=== PATIENT | female | born 1950 | race Caucasian/White ===

== ENCOUNTER → 2020-05-30 11:31 | Outpatient (BNVA) | payer MEDICARE, SELFPAY | PROVIDERS: Referring Provider Family Medicine; Visit Provider Specialist | DX: G89.29 Other chronic pain (principal); M25.551 Pain in right hip | CPT/HCPCS: 73502 ==

== ENCOUNTER → 2020-11-28 10:11 | Outpatient (BNVA) | payer MEDICARE, SELFPAY | PROVIDERS: Visit Provider Specialist | DX: M16.11 Unilateral primary osteoarthritis, right hip (principal) | CPT/HCPCS: 73502 ==

== ENCOUNTER → 2020-12-13 12:05 | Day surgery (SDC) | payer MEDICARE, SELFPAY | PROVIDERS: PCP Family Medicine; Visit Provider Specialist | DX: M16.11 Unilateral primary osteoarthritis, right hip (principal); Z01.818 Encounter for other preprocedural examination | CPT/HCPCS: 93005 ==

== ENCOUNTER → 2020-12-20 09:06 | Outpatient (BNVA) | payer MEDICARE, SELFPAY | PROVIDERS: PCP Family Medicine; Visit Provider Specialist | DX: Z20.822 Contact with and (suspected) exposure to COVID-19 (principal); M16.11 Unilateral primary osteoarthritis, right hip; Z11.52 Encounter for screening for COVID-19 | CPT/HCPCS: 87635 ==

== ENCOUNTER 2020-12-24 10:20 | Observation (INO) | payer MEDICARE, SELFPAY ==
[2020-12-13 11:27] LABS: Add Urine Microscopic? NO
[2020-12-13 11:38] VITALS: BMI 40.0
[2020-12-13 11:48] LABS: Bilirubin Urine Neg (Negative); Blood Urine Neg (Negative); Glucose Urine UA Norm (Normal); Ketones Urine Negative (Negative); Leukocyte Esterase Urine Negative (Negative); Nitrate Urine Negative (Negative); Protein Urine Neg (Negative); Specific Gravity, Urine 1.025 (1.005-1.030); Urine Appearance Clear (CLEAR); Urine Color Yellow (Yellow); Urobilinogen Urine 1 mg/dL (Negative)
--- NOTE | 2020-12-13 12:05 | ECG_ITS ---
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 Measurements Intervals [place] Rate: 61 P: 44 OR: 159 QRS: -17 QRSD: 97 T: 32 QT: 442 QTc: 445 Interpretive Statements SINUS RHYTHM LOW QRS VOLTAGE IN PRECORDIAL LEADS [QRS DEFLECTION < 1.0 mV IN CHEST LEADS] POSSIBLE ANTERIOR MYOCARDIAL INFARCTION [30 ms Q WAVE IN V3/V4, OR R < 0.2 mV IN V4], PROBABLY OLD No previous ECG available for comparison Electronically Signed On 12-13-2020 16:14:38 PATIENT OFFICE REP by Duane Araujo M.D. [email or web address]
--- NOTE | 2020-12-13 12:14 | ANES.PREANE2 ---
Pre-Anesthetic Assessment Pre-Anesthetic Assessment: Height/Weight: Height 1.6 m Weight 102.512 kg Preop Diagnosis: Severe right hip DJD Proposed Procedure: Operation Date: 12/24/20 07:00 Proposed Procedures p Total Hip Arthroplasty 23158 M16.9(Right) - Kenna Aponte MD Familial anesthetic complications: None Social: Social History: No alcohol and No tobacco Exam: Pre-Anes Outpt Exam: alert, oriented x 3, clear to auscultation bilaterally and regular rate & rhythm Airway: Cervical ROM: WNL MP: 2 Dentition: Partials and Other (2 front teeth loose d/t damage from an infant's head) Additional comments: very poor dentition, discolored Pulmonary: Pulmonary: COPD (moderate -uses inhaler 2x daily, hasnt' needed rescue inhaler for quite awhile) and Sleep apnea CV/HEM: CV/HEM: HTN Metabolic: Metabolic: Morbid obesity and Thyroid Anesthetic Plan: ASA status: 3 Anesthesia: General and Regional (specify below) Other: Patient ok with spinal Risk of > 500 ml blood loss (7ml/kg in children): No PFSH Anesthesia PFSH: Medical History (Updated 12/13/20 @ 11:30 by Domonique Parra) COPD (chronic obstructive pulmonary disease) Hypertension Social History (Updated 12/13/20 @ 11:32 by Domonique Parra) Smoking and tobacco status: former smoker Alcohol intake: former Desire information about alcohol rehabilitation?: No Counseling given: No Substance/Drug Use: never Data Anesthesia Other Labs: Laboratory Results - last 48 hr 12/13/20 11:24 Urine Color Yellow Urine Appearance Clear Urine pH 5.0 Ur Specific [place] 1.025 Urine Protein Neg Urine Glucose (UA) Norm Urine Ketones Negative Urine Blood Neg Urine Nitrate Negative Urine Bilirubin Neg Urine Urobilinogen 1 H Ur Leukocyte Esterase Negative Cardiac Studies: No Data to Display
[2020-12-13 12:42] LABS: Basophils % 0.7 %; Eosinophils # 0.1 10^3/uL (0.0-0.8); Eosinophils % 2.6 %; Hematocrit 42.9 % (37.0-47.0); Hemoglobin 14.5 g/dL (11.5-15.3); Lymphocytes # 1.3 10^3/uL (0.8-4.8); Lymphocytes % 24.5 %; Mean Corpuscular HGB Conc 33.8 g/dL (30.0-36.0); Mean Corpuscular Hemoglobin 30.7 pg (28.0-34.0); Mean Corpuscular Volume 90.9 fL (81-99); Monocytes # 0.5 10^3/uL (0.2-0.9); Monocytes % 8.2 %; Neutrophils # 3.47 10^3/uL (1.8-7.7); Neutrophils % 63.6 %; Nucleated Red Blood Cells % 0 %; Platelet Count 152 10^3/cmm (130-400); Red Blood Count 4.72 10^6/uL (4.1-5.3); Red Cell Distribution Width 13.4 % (12.1-15.1); White Blood Count 5.5 10^3/uL (4.0-10.0)
[2020-12-13 13:02] LABS: Alanine Aminotransferase 22 U/L (0-33); Alkaline Phosphatase 69 IU/L (35-105); Anion Gap 11.1 (5-19); Aspartate Amino Transferase 24 U/L (0-32); Blood Urea Nitrogen 18 mg/dL (8-23); Calcium 9.1 mg/dL (8.5-10.5); Carbon Dioxide 29 mmol/L (22-29); Chloride 100 mmol/L (98-107); Globulin 3.7 g/dL (1.3-4.6); Glomerular Filtration Rate 70.9 mL/min (90-130); Glucose 105 mg/dL (65-115); Osmolality Calculated 286 mOsm/kg (285-295); Potassium 3.1 mmol/L (3.5-5.1); Sodium 137 mmol/L (136-145); Total Bilirubin 0.5 mg/dL (0.15-1.2); Total Protein 7.7 g/dL (6.6-8.7)
[2020-12-24] VITALS (25 sets, daily range): BP systolic 110–142; BP diastolic 62–85; PULSE 61–78; RESP 13–20; TEMP 36–37.3; O2SAT 95–100
[2020-12-24] MEDS: CELEcoxib 200 mg Capsule 400 MG PO (06:30)
--- NOTE | 2020-12-24 06:40 | P.HPUD_ITS ---
Surgery/Procedure H&P Update DATE OF PROCEDURE: December 24, 2020 DATE H&P PERFORMED: 11/28/20 H&P UPDATE INFORMATION: I have reviewed H&P completed within last 30 days, I have examined patient prior to procedure, No changes to prior documentation and H&P is in [facility] [place] on date indicated PREOP DIAGNOSIS: Severe right hip DJD PLANNED PROCEDURE: Operation Date: 12/24/20 07:00 Proposed Procedures p Total Hip Arthroplasty 37853 M16.9(Right) - Kenna Aponte MD Related Problem List Diagnoses (1) Obesity, Class II, BMI 35-39.9: (2) Primary osteoarthritis of right hip:
[2020-12-24] MEDS: sodium chloride 0.9% 1,000 ML 30 ML IV (06:49)
--- NOTE | 2020-12-24 06:51 | P.ANESUD_ITS ---
Pre-Anesthetic Update Pre-Anesthetic Assessment: Date of Surgery/Procedure: 12/24/20 Preop Beatrice gnosis: Severe right hip DJD Proposed Procedure: Operation Date: 12/24/20 07:00 Proposed Procedures p Total Hip Arthroplasty 62075 M16.9(Right) - Kenna Aponte MD Any changes to Pre-Anesthetic Assessment?: No Vitals: Pulse Rate 62 12/24/20 06:21 Respiratory Rate 18 12/24/20 06:21 Blood Pressure 142/77 12/24/20 06:21 Blood Pressure Khloe n 98 12/24/20 06:21 Pulse Oximetry 97 12/24/20 06:21 Exam: Pre-Anes Outpt Exam: alert, oriented x 3, clear to auscultation bilaterally and regular rate & rhythm Cardiac Studies: No Data to Display
--- NOTE | 2020-12-24 08:50 | SUR.OPER ---
0805- called with update
[2020-12-24] MEDS: vancomycin 1,000 MG SDV 1000 MG IRRIGATION (09:14)
[2020-12-24] MEDS: vancomycin 1,000 MG SDV 1000 MG XX (09:15)
--- NOTE | 2020-12-24 09:27 | SUR.OPER ---
0915-CALLED WITH UPDATE
[2020-12-24] MEDS: fentaNYL 50 mcg/mL INJ 2mL IVP ×2 (10:37→10:43)
[2020-12-24] MEDS: morphine 4 mg/mL SDV 1 mL 2 MG IVP (10:47)
--- NOTE | 2020-12-24 10:50 | XRR_ITS ---
PROCEDURE INFORMATION: Exam: XR Pelvis Exam date and time: 12/24/2020 11:01 AM Age: 70 years old Clinical indication: Device placement; Prior surgery; Surgery date: Post-operative (0-2 days); Surgery type: Postop right total hip TECHNIQUE: Imaging protocol: XR pelvis. Views: 1 or 2 view. COMPARISON: CR XR hip RT 2-3V wo/w pel* [id number] 11/28/2020 10:17 AM FINDINGS: Bones/joints: Anatomic alignment of right hip arthroplasty. Degenerative change. Soft tissues: Panniculus and skin folds. XR/XR pelvis 1-2V* [id number] IMPRESSION: Anatomic alignment of right hip arthroplasty.
--- NOTE | 2020-12-24 11:03 | P.OP_ITS ---
Operative Report Date of procedure: December 24, 2020 Pre-op Diagnosis: Severe right hip DJD Post-op diagnosis: same Post-op Findings: Severe degenerative osteoarthritis right hip with circumferential osteophytes on the femoral neck and acetabulum. Procedure Done: Right total hip arthroplasty Implants: [place] Accolade II total hip system: The size 52 mm solid back acetabular shell with an E alpha code and an MDM liner size 42 mm inner diameter by E alpha code. An Accolade II size 4 x 127 degree neck angle hip stem, femoral head size 28 mm outer diameter and +0 mm offset inside of an MDM insert size inner diameter 28 mm to match the 42E Specimens removed/disposition: Femoral head and synovium sent to pathology Pathology: other (Femoral head and synovium) Surgeon: Kenna Aponte Curtain Fitter: [facility] operating room technicians Anesthesia: General (Intubated, ASA 3) Estimated blood loss (mL): 750 IV fluids (mL): 1,500 Urine output (mL): 400 Complications: None Findings: Severe degenerative osteoarthritis of the right hip with large osteophytes, restricted range of motion, and obesity causing difficulty with surgical exposure and procedure. Following the surgical procedure, the hip was stable at 90 degrees of flexion with 70 degrees of internal rotation and 20 degrees of adduction. It was also stable to external rotation and toe hang. There was no impingement noted. Condition: stable Disposition: PACU (Then to floor for postoperative observation, pain management, and initiation of physical therapy.) Brief History: This 70-year-old woman presented with complaints of severe right hip pain with significant reduction in range of motion. She has had significant limitations in her activities of daily living. Her surgical procedure was complicated by her BMI at 40. Previously, in the office, she was slightly less than 40. Risks and complications of surgery were discussed with the patient. She understood and wished to proceed. Consents were signed. Questions were answered. Procedure: Patient was brought to the operating theater. She was transferred to the operating room table and subsequently administered a general anesthetic intubated, ASA 3. Following administration of adequate anesthesia, the patient was placed in full lateral position and held in position with a pegboard. The patient's right lower extremity was then prepped and draped in usual fashion utilizing DuraPrep. It was draped free. Following prepping and draping a surgical pause was performed. At the time of surgical pause, we identified the site and side of surgery. We also identified the patient and preoperative surgical markings. Confirmation was made of equipment availability. Additionally, the patient's preoperative IV antibiotic, vancomycin 2 g and TXA 1 g preoperatively was confirmed as being given in a timely fashion and being the appropriate. Following the surgical pause, an incision was made centering over the patient's greater trochanter continuing proximally and distally as necessary to allow access to the hip joint. Dissection continued through skin and soft tissues using a scalpel, and hemostasis was obtained using electrocautery. The tensor fascia priya was identified and incised longitudinally. Sciatic nerve was identified and protected throughout the surgical procedure. A Charnley U retractor was placed after the tensor fascia priya had been incised longitudinally, and the sciatic nerve had been identified. The hip had significant limitation in range of motion, and most particularly, and internal rotation. Exposure was quite difficult secondary to the patient's morbid obesity. She had lost weight preoperatively to a BMI of less than 40, and on the day of presentation for surgery was at 40. Retractors were placed, and the piriformis muscle was identified and tagged. Piriformis muscle along with the remaining short external rotators were then incised from the posterior aspect of the hip joint. These were retracted posteriorly. The capsule was entered in a T-type fashion with the edges being tagged. Upon entry through the capsule, there were large osteophytes, particularly posteriorly on the acetabulum. The femoral head was noted to be deformed. Appropriate osteotomy was performed of the femoral neck following hip dislocation. We then evaluated the acetabulum. There was significant synovium and thickening within the acetabulum. There was actually a large mass of synovium which was sent to pathology. Additionally, the femoral head was sent to pathology. The femur was retracted anteriorly. Soft tissues were retracted, osteophytes were excised, and the labrum was removed. We then began reaming. Reaming was accomplished sequentially. We reamed to a size 51 to allow for a size 52 acetabular shell. The acetabulum was impacted into position. The dome hole was filled with the appropriate metal plug. Also, we confirmed that the acetabular insert was completely seated prior to addressing the femur. After the acetabulum was in appropriate position, we placed the MDM liner without difficulty. The cup was noted to seat nicely and had good fixation upon impact. Attention was directed to the proximal femur. The proximal femur was lifted out of the wound. A canal finder was passed after the box chisel. The reamer was used to lateralize. We then began broaching. We broached sequentially, and placed a size 4 broach in position for trial reduction. A trial reduction was accomplished with a -4 mm femoral head inside the appropriate MDM insert. We initially attempted a +0 mm femoral head, but we were unable to reduce the hip. After we had reduced the hip with a -4 mm femoral head, we were able to change the head again to a +0 mm and reduction was able to be accomplished, and this gave excellent stability. With this in place, we had the above stabilities, and at that time, we felt that we had acceptable leg lengths. It had been determined preoperatively. Therefore, the +0 mm offset femoral head was chosen. Trial components were removed after the hip was dislocated. The size 4 Accolade II 127 degree neck angle hip stem was impacted into position without difficulty and onto this was placed a +0 mm offset femoral head with the appropriate MDM liner. The hip was then reduced without difficulty. With this construct, we had the above-noted stability. The stem was noted to seat nicely prior to placement of the femoral head. The wound was then copiously irrigated with 20 mL of Betadine and 500 mL of normal saline mixed together. Subsequently, we suctioned this out and irrigated the wound copiously with lactated Ringer's. Following reduction of the prosthesis once again, we confirmed the stability of the hip. Leg lengths were also felt to be satisfactory. Being satisfied with the prosthesis, attention was directed to closure. Closure was accomplished with 0 Vicryl in the capsular tissues. Piriformis was reattached with 0 Vicryl as well. Tensor fascia priya was closed with 0 Vicryl in an interrupted fashion. The subcutaneous tissues were closed with a combination of 0 Vicryl and 2-0 Monocryl. Vancomycin powder and a Gelfoam thrombin mixture was placed into the wound as well. The skin was closed with a running 3-0 Monocryl followed by Exofin and Steri-Strips. This was covered with Telfa and Tegaderm. The patient was placed in an abduction pillow. She was returned the Recovery Room in a satisfactory condition and will be discharged to the floor for postoperative rehabilitation and pain management. There were no complications. Associated Problem List Diagnoses (1) Primary osteoarthritis of right hip: (2) Obesity, Class II, BMI 35-39.9:
[2020-12-24] MEDS: TRAMadol 50 mg Tablet PO (12:35)
[2020-12-24] MEDS: CELEcoxib 200 mg Capsule PO ×2 (14:40→22:39)
[2020-12-24] MEDS: chlorhexidine gluconate 0.12% Btl 473 mL 30 ML MUCOUS MEM ×3 (14:40→22:39)
[2020-12-24] MEDS: oxyCODONE 5 mg IR Tab/Cap PO ×2 (15:35→19:56)
[2020-12-24] MEDS: mupirocin oint 22 gm 1 APPLIC NASAL (17:10)
[2020-12-24] MEDS: sennosides-docusate Tablet 2 TAB PO (17:10)
[2020-12-24] MEDS: calcium carbonate 500 mg Chew Tablet 1000 MG PO (17:10)
[2020-12-24] MEDS: iron polysaccharide complex 150 mg Capsule PO (17:10)
--- NOTE | 2020-12-24 21:30 | ANE.PACU2 ---
Inpatient post-anesthesia follow up: Airway intact: Yes Vital signs: Temperature 98.7 F Pulse Rate 69 Respiratory Rate 18 Blood Pressure 120/76 Pulse Oximetry 96 Oxygen Delivery Me thod Room Air Oxygen Flow Rate 8 Fraction of Inspir ed Oxygen Hydration adequate: Yes Nausea and vomiting: No Pain level: 4 Mental status: Baseline
[2020-12-25] VITALS (8 sets, daily range): BP systolic 108–118; BP diastolic 65–71; PULSE 60–75; RESP 18; TEMP 36.8–37.2; O2SAT 95–98
[2020-12-25 02:15] LABS: Basophils % 0.4 %; Eosinophils # 0.1 10^3/uL (0.0-0.8); Eosinophils % 1.4 %; Hematocrit 35.3 % (37.0-47.0); Hemoglobin 11.7 g/dL (11.5-15.3); Lymphocytes # 1.7 10^3/uL (0.8-4.8); Lymphocytes % 18.2 %; Mean Corpuscular HGB Conc 33.1 g/dL (30.0-36.0); Mean Corpuscular Volume 93.4 fL (81-99); Monocytes % 10.6 %; Neutrophils # 6.42 10^3/uL (1.8-7.7); Nucleated Red Blood Cells % 0 %; Platelet Count 147 10^3/cmm (130-400); Red Blood Count 3.78 10^6/uL (4.1-5.3); Red Cell Distribution Width 13.9 % (12.1-15.1); White Blood Count 9.3 10^3/uL (4.0-10.0)
--- NOTE | 2020-12-25 02:33 | PC.NURSE ---
Pt ambulated from bed to chair this morning as she was unable to sleep and restless. Pt ambulated approx 15 ft to chair and did very well with little assistance.
[2020-12-25 02:34] LABS: Anion Gap 10.3 (5-19); Blood Urea Nitrogen 12 mg/dL (8-23); Calcium 8.4 mg/dL (8.5-10.5); Carbon Dioxide 30 mmol/L (22-29); Chloride 99 mmol/L (98-107); Glomerular Filtration Rate 70.9 mL/min (90-130); Glucose 113 mg/dL (65-115); Osmolality Calculated 283 mOsm/kg (285-295); Potassium 3.3 mmol/L (3.5-5.1); Sodium 136 mmol/L (136-145)
[2020-12-25] MEDS: oxyCODONE 5 mg IR Tab/Cap PO ×2 (04:15→12:19)
[2020-12-25] MEDS: vancomycin 1,000 MG in sodium chloride 0.9% 250 ML 250 MG IV (06:47)
[2020-12-25] MEDS: iron polysaccharide complex 150 mg Capsule PO (08:25)
[2020-12-25] MEDS: multivitamin therapeutic Tablet 1 TAB PO (08:53)
[2020-12-25] MEDS: calcium carbonate 500 mg Chew Tablet 1000 MG PO (08:53)
[2020-12-25] MEDS: hydroCHLOROthiazide 25 mg Tablet PO (08:54)
[2020-12-25] MEDS: sennosides-docusate Tablet 2 TAB PO (08:54)
[2020-12-25] MEDS: cholecalciferol (vitamin D3) 1,000 unit Tablet 1000 UNIT PO (08:54)
[2020-12-25] MEDS: levothyroxine 125 mcg Tablet PO (08:55)
[2020-12-25] MEDS: aspirin 325 mg EC Tablet PO (08:55)
[2020-12-25] MEDS: citalopram 20 mg Tablet 40 MG PO (08:55)
[2020-12-25] MEDS: chlorhexidine gluconate 0.12% Btl 473 mL 30 ML MUCOUS MEM ×2 (08:59→12:21)
[2020-12-25] MEDS: mupirocin oint 22 gm 1 APPLIC NASAL (10:58)
[2020-12-25] MEDS: CELEcoxib 200 mg Capsule PO (10:58)
[2020-12-25] MEDS: acetaminophen 500 mg Tablet 1000 MG PO (10:58)
--- NOTE | 2020-12-25 14:26 | PM.DCS ---
Discharge Providers Date of Admission: 12/24/20 10:20 Date of Discharge: December 25, 2020 Attending Provider at Admission: Kenna Aponte MD Attending Provider at Discharge: Kenna Aponte MD Primary Care Provider: Rell Sarah MD Diagnoses at Discharge Discharge Diagnosis (1) Primary osteoarthritis of right hip: Status: Acute (2) Obesity, Class II, BMI 35-39.9: Status: Acute (3) History of total left hip arthroplasty: Status: Acute Permanent problem details: Right total hip arthroplasty with the following implants: [place] Accolade II total hip system: The size 52 mm solid back acetabular shell with an E alpha code and an MDM liner size 42 mm inner diameter by E alpha code. An Accolade II size 4 x 127 degree neck angle hip stem, femoral head size 28 mm outer diameter and +0 mm offset inside of an MDM insert size inner diameter 28 mm to match the 42E Reason for Visit Reason for Visit: osteoarthritis right hip Hospital Course Hospital Course This 70-year-old woman was brought into the hospital on December 24, 2020 for right total hip arthroplasty. The patient underwent same-day surgery. Postoperatively, she was admitted to the hospital in observation status to work on pain management and postoperative monitoring. She was also to work with physical therapy. On the first postoperative day, the patient was seen in her room. Her wound was benign. Her clear Tegaderm dressing with Telfa was left in place. She was doing well and was ambulating independently. Therapy thought that she was doing very well as well. She was neurologically intact. There is no evidence of infection. Labs were stable. The patient wished to be discharged home with home health, and I was in agreement with this. Therefore we will plan for that postoperative course. Physical Exam Const: COMMON NORMALS: no acute distress, average body habitus, patient oriented x3 and alert GENERAL APPEARANCE: cooperative and comfortable ORIENTATION/CONSCIOUSNESS: Yes awake HENMT: COMMON NORMALS: normocephalic and atraumatic HEAD & SCALP: normocephalic and atraumatic Eye: GENERAL EYE: appearance normal, both eyes and all related structures Chest: COMMONS NORMALS: normal inspection of the chest Resp: COMMON NORMALS: normal respiratory effort EFFORT & INSPECTION: Yes able to speak in complete sentences and Yes symmetric chest movement Extremity: RIGHT LOWER EXTREMITY: Yes hip joint (Incision is benign with minimal thigh swelling) Right hip: Yes inspection (No erythema or evidence of infection), Yes palpation (Minimal to no discomfort), Yes ROM (Not evaluated) and Yes neurovascular exam (Intact distal with no evidence of DVT) Neuro: COMMON NORMALS: patient oriented x3 SENSORIUM/ORIENTATION: Yes alert Psych: COMMON NORMALS: mental status grossly normal APPEARANCE: Yes grossly normal ATTITUDE: Yes calm and Yes engaged ATTENTION/CONCENTRATION: Yes attention grossly intact Skin: COMMON NORMALS: no rashes or lesions noted GENERAL SKIN EXAM: no rashes or lesions noted Urinary Catheter Management^: Canas: Cath Placed During This Visit: yes, but has since been removed by the nurse Reason for Continuing Indwelling Catheter: Perioperative Use in Selected Surgeries Urinary Catheter Date of Insertion: 12/24/20 Urinary Catheter Time of Insertion: 07:20 Date Urinary Catheter Removed: 12/25/20 Time Urinary Catheter Discontinued: 06:15 Discharge Data Data Completed and Pending: Completed Studies During Hospitalization Category Date Time Status XR pelvis 1-2V* 7 2170 Urgent Exams 12/24/20 10:50 Completed Pending at discharge Category Date Time Status Complete Blood Co unt w/Auto AM LABS Lab 12/26/20 04:00 Ordered Complete Blood Co unt w/Auto AM LABS Lab 12/27/20 04:00 Ordered Pathology: Surgic al [PTH] Routine Pth 12/24/20 10:36 Received Labs from last 24 hours 12/25/20 12/25/20 02:01 02:01 WBC 9.3 RBC 3.78 L Hgb 11.7 Hct 35.3 L MCV 93.4 MCH 31.0 MCHC 33.1 RDW 13.9 Plt Count 147 MPV 11.0 H Neut % (Auto) 69.0 Lymph % (Auto) 18.2 [place] % (Auto) 10.6 Eos % (Auto) 1.4 Baso % (Auto) 0.4 Neut # (Auto) 6.42 Lymph # (Auto) 1.7 [place] # (Auto) 1.0 H Eos # (Auto) 0.1 Baso # (Auto) 0.0 Nucleated RBC % (a uto) 0 Nucleated RBCs # 0.0 Sodium 136 Potassium 3.3 L Chloride 99 Carbon Dioxide 30 H Anion Gap 10.3 BUN 12 Creatinine 0.8 GFR Calculation 70.9 L Glucose 113 Calculated Osmolal ity 283 L Calcium 8.4 L Vitals: Last Vital Signs Temp 99.0 F 12/25/20 11:14 Pulse 75 12/25/20 11:14 Resp 18 12/25/20 12:19 BP 118/71 12/25/20 11:14 Pulse Ox 98 12/25/20 11:14 Discharge Plan Discharge Patient Disposition: Home Health Service Condition: Stable Prescriptions: New celecoxib 200 mg Capsule 200 mg PO Q12H Qty: 60 RF: 0 acetaminophen 500 mg Tablet 1,000 mg PO Q8H 30 Days Qty: 180 RF: 0 aspirin 325 mg Tablet,Delayed Release (Dr/Ec) 325 mg PO DAILY 30 Days Qty: 0 RF: 0 oxycodone 5 mg Tablet 5 mg PO Q4H PRN (Reason: Moderate Pain) Qty: 30 RF: 0 Continued hydrochlorothiazide 25 mg tablet 25 mg PO DAILY RF: 0 albuterol sulfate 200 mcg capsule 2 mcg INHALATION 5XD PRN (Reason: Wheezing) RF: 0 citalopram 40 mg tablet 40 mg PO DAILY RF: 0 levothyroxine 125 mcg capsule 125 mcg PO DAILY RF: 0 tramadol 50 mg tablet 50 mg PO BID PRN (Reason: pain ) RF: 0 fluticasone propion-salmeterol [Wixela Inhub] 100-50 mcg/dose Blister With Device 1 inh INHALATION BID RF: 0 Held diclofenac sodium 75 mg tablet,delayed release (DR/EC) 75 mg PO BID RF: 0 Hold Instructions: Resume on 01/22/21. May resume AFTER Celebrex completed aspirin 81 mg tablet,delayed release (DR/EC) 81 mg PO DAILY RF: 0 Hold Instructions: Resume on 01/22/21. Take full size aspirin for 1 month then resume 81mg Discharge Orders: Discharge Order (Routine); Ordered 12/25/20 Ordered By: Kenna Aponte Referrals: Kenna Aponte MD [Physician] - 01/06/21 10:45 am Discharge Diet: Usual diet Discharge Activity: Increase activity as tolerated, Limit activity as instructed, Use walker/crutches as instructed and As per PT/OT instructions Patient Instructions: Oxycodone/Acetaminophen (By mouth), Celecoxib (By mouth), Total Hip Replacement (DC), Precautions after Total Joint Replacement Surgery (DC) Activity Restrictions/Additional Instructions: Posterior hip precautions as instructed. May ambulate weightbearing as tolerated. Work with physical therapy for range of motion, gait training, and strengthening. Discharge Attestations Time Spent in Discharge Care*: greater than 30 min Specific Discharge Activities: educating patient, documenting/other paperwork and evaluating patient/reviewing data Quality Metrics Clinical Quality Measures During this hospital stay, did patient experience: None Coding Level of Care Code Acute Laser Beam Trim Operator for Christelle Fwd Diagnoses Primary osteoarthritis of right hip M16.11 Obesity, Class II, BMI 35-39.9 E66.9 History of total left hip arthroplasty Z96.642
== END 2020-12-25 15:22 | disposition home health service (06) ==
LOC: MEDSURG 10:21
PROVIDERS: Admitting Provider Specialist; PCP Family Medicine; Visit Provider Specialist
PROC: (CPT 27130; principal; 2020-12-24 07:00)
DX: M16.11 Unilateral primary osteoarthritis, right hip (principal); E66.01 Morbid (severe) obesity due to excess calories; Z68.35 Body mass index [BMI] 35.0-35.9, adult; Z96.642 Presence of left artificial hip joint; J44.9 Chronic obstructive pulmonary disease, unspecified; G47.30 Sleep apnea, unspecified; I10 Essential (primary) hypertension; Z87.891 Personal history of nicotine dependence
CPT/HCPCS: 27130; 36415; 51702; 72170; 80048; 80053; 81003; 85025; 88304; 88305; 94640; 96365; 97116; 97161; 97166; 97530; C1776; G0378; J0131; J0360; J2270; J2370; J2405; J2704; J2710; J3010; J3370; J3490; J7030; J7040; J7050

== ENCOUNTER → 2021-01-06 11:41 | Outpatient (BNVA) | payer MEDICARE, SELFPAY | PROVIDERS: PCP Family Medicine; Visit Provider Specialist | DX: Z96.642 Presence of left artificial hip joint (principal); Z47.1 Aftercare following joint replacement surgery | CPT/HCPCS: 73502 ==

== ENCOUNTER → 2021-02-03 09:41 | Outpatient (BNVA) | payer MEDICARE, SELFPAY | PROVIDERS: PCP Family Medicine; Visit Provider Specialist | DX: Z48.89 Encounter for other specified surgical aftercare (principal); Z96.642 Presence of left artificial hip joint | CPT/HCPCS: 73502 ==

== ENCOUNTER → 2021-05-29 09:05 | Outpatient (BNVA) | payer MEDICARE, SELFPAY | PROVIDERS: PCP Family Medicine; Visit Provider Specialist | DX: Z47.1 Aftercare following joint replacement surgery (principal); Z96.642 Presence of left artificial hip joint; Z96.641 Presence of right artificial hip joint | CPT/HCPCS: 73502 ==

== ENCOUNTER → 2022-02-23 10:10 | Outpatient (BNVA) | payer MEDICARE, SELFPAY | PROVIDERS: PCP Family Medicine; Visit Provider Specialist | DX: Z96.641 Presence of right artificial hip joint (principal); E66.01 Morbid (severe) obesity due to excess calories; Z87.891 Personal history of nicotine dependence | CPT/HCPCS: 73502; 99213 ==

== ENCOUNTER → 2023-03-01 09:11 | Outpatient (BNVA) | payer MEDICARE, SELFPAY | PROVIDERS: PCP Family Medicine; Visit Provider Specialist | DX: Z96.641 Presence of right artificial hip joint (principal); M16.11 Unilateral primary osteoarthritis, right hip; E66.01 Morbid (severe) obesity due to excess calories; Z68.41 Body mass index [BMI] 40.0-44.9, adult | CPT/HCPCS: 73502; 99213 ==

== ENCOUNTER → 2024-12-27 13:00 | Outpatient (BNVA) | payer MEDICARE, SELFPAY | PROVIDERS: PCP Family Medicine; Referring Provider Registered Nurse; Visit Provider Internal Medicine | DX: R07.9 Chest pain, unspecified (principal); R00.1 Bradycardia, unspecified | CPT/HCPCS: 93005 ==

== ENCOUNTER 2025-01-30 07:41 | Outpatient (CLI) | payer MEDICARE, SELFPAY ==
--- NOTE | 2025-01-30 | ECG_ITS ---
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 The perfusion scan will be documented separately. DATA: Baseline heart rate was 55 beats per minute. Baseline blood pressure was 155/80 millimeters of mercury. Target heart rate was 146. Maximum heart rate achieved was 70. which was 47 % of the predicted target heart rate. Maximum blood pressure was 178/93 millimeters of mercury. The reason for ending the test was completion of the protocol. The patient did not experience any symptoms. ELECTROCARDIOGRAM: BASELINE: Sinus bradycardia. Normal axis. Otherwise, no ST-T changes suggestive of ischemia noted. No arrhythmia noted. EXERCISE: After Lexiscan injection, no ST-T changes suggestive of ischemic noted. No arrhythmia noted. CONCLUSION: Please note due to baseline abnormality of the EKG specificity and sensitivity of the EKG portion of LexiScan MIBI stress test will be low 1. EKG not suggestive of ischemia 2. Lexiscan injection unremarkable. 3. Perfusion scan will be documented separately. Electronically Signed On 02-05-2025 19:57:16 CDT by DONALDO THOMPSON [email or web address]
[2025-01-30 08:05] VITALS: BMI 44.1
--- NOTE | 2025-01-30 08:05 | NMCV_ITS ---
NM jimena perf SPECT r/s* [id number] Raya Gaston Age: 74 Gender: F : 1950 Exam Date: 01/30/2025 09:14 Ordering Phys: Rodo Ramirez M.D ([email or web address]) Technologist: LIZZIE Arriaza Exam Location: [facility] Indications: cp STRESS TEST Please see separate stress test report in [facility] for full findings IMAGE PROTOCOL Rest/Stress 1 Lexiscan Day Radiopharmaceutical Dose (mCi) Administration Site Administered by Rest: Tc-99m 10.8 IV LIZZIE Diaz Sestamibi Stress:Tc-99m 32.7 IV LIZZIE Arriaza Sestamirocio Rest: 30-Jan-2025 60 Discovery 630 Stress: 30-Jan-2025 30 Discovery 630 0.4mg Lexiscan. Images obtained in supine and prone position. SPECT RESULTS Technical Quality: Good Raw Data Analysis: Normal Image Corrections: No attenuation or motion correction applied Summed Stress Score: 6 Summed Rest Score: 8 Summed Difference Score: 0 PERFUSION FINDINGS Moderate area of moderately decreased tracer uptake involving the basal, mid and apical inferior wall segments with no significant reversibility FUNCTIONAL RESULTS (calculated via Gated SPECT) Stress Image LV EF (%): 78 Stress EDV (mL):89 TID: 0.96 Stress ESV (mL):20 FUNCTIONAL FINDINGS: 1. Segmental wall motion analysis revealing no gross wall motion abnormalities IMPRESSIONS 1. Myocardial perfusion imaging revealing moderate area of persistent decreased tracer uptake involving the inferior wall region, most likely represent attenuation artifact. 2. Normal LV ejection fraction of 78%. 3. LV wall motion analysis revealing no gross wall motion abnormalities. 4. Normal LV volume Low probability for coronary ischemia, based on the above findings Dr Duane Araujo MD [facility] (Electronically Signed) Final Date: 30 January 2025 17:03 S
[2025-01-30] MEDS: regadenoson 0.4 Mg/5 ml Syringe IVP (09:43)
[2025-01-30 10:02] VITALS: BP 147/90; PULSE 58
== END 2025-01-30 07:42 | disposition home or self-care (01) ==
PROVIDERS: PCP Registered Nurse; Visit Provider Internal Medicine
DX: R07.9 Chest pain, unspecified (principal)
CPT/HCPCS: 36415; 78452; 93017; 93306; 96374; A9500; J2785

== ENCOUNTER → 2025-03-29 10:30 | Outpatient (BNVA) | payer MEDICARE, SELFPAY | PROVIDERS: PCP Registered Nurse; Visit Provider Nurse Practitioner Family | DX: I71.20 Thoracic aortic aneurysm, without rupture, unspecified (principal); I10 Essential (primary) hypertension; R00.1 Bradycardia, unspecified; E03.9 Hypothyroidism, unspecified; J44.9 Chronic obstructive pulmonary disease, unspecified; G47.33 Obstructive sleep apnea (adult) (pediatric); Z79.02 Long term (current) use of antithrombotics/antiplatelets; Z86.73 Personal history of transient ischemic attack (TIA), and cerebral infarction without residual deficits; Z87.891 Personal history of nicotine dependence | CPT/HCPCS: 36415; 84439; 84443; 84481; 99214 ==

== ENCOUNTER 2025-04-30 13:14 | Outpatient (CLI) | payer MEDICARE, SELFPAY ==
--- NOTE | 2025-04-30 13:45 | CTR_ITS ---
PROCEDURE INFORMATION: Exam: CTA Chest With Contrast Exam date and time: 04/30/2025 1:45 PM Age: 74 years old Clinical indication: Condition or disease; Other: Thoracic aortic aneurysm. No history of recent trauma or surgery is provided. TECHNIQUE: Imaging protocol: Computed tomographic angiography of the chest with contrast. Exam focused on the arteries. 1254image(s) are provided. 3D rendering (Not supervised by radiologist): MIP and/or 3D reconstructed images were created by the technologist. Radiation optimization: All CT scans at this facility use at least one of these dose optimization techniques: automated exposure control; mA and/or kV adjustment per patient size (includes targeted exams where dose is matched to clinical indication); or iterative reconstruction. Contrast material: OMNI 350; Contrast volume: 100 ml; Contrast route: INTRAVENOUS (IV); Other technique: Axial images are available with sagittal and coronal reconstruction views. Automated dose exposure control is utilized. The DLP is 938.5. COMPARISON: No relevant prior thoracic studies are currently available to evaluate for interval change or stability. RADIATION DOSE METRICS: Total DLP (mGy-cm): 938.5 FINDINGS: Pulmonary arteries: No central pulmonary thromboembolism is appreciated. Aorta: No thoracic aortic saccular aneurysmal dilatation is appreciated with some chronic atherosclerotic related changes. There is however some fusiform ectatic dilatation appearance of the ascending aorta for example with the measurements including ascending of around 4.4 cm, arch level 3 cm, descending thoracic 3 cm diaphragmatic hiatus 2.7 cm. There appears to be some questionable thickening of the aortic valvular level along with some overall cardiac chamber prominence suggested with left predominance. The study for small-vessel coronary evaluation is limited with significant motion. There does appear to be some questionable variance for example origin of the left between the aortic root and left atrium along with incomplete overall origin visualization on the right. Given this and the coronary calcifications, consider dedicated coronary CTA. Thyroid: There is some heterogeneity, lobulation of the thyroid gland with some left predominance. Consider thyroid ultrasound. Trachea: The central airways appear grossly patent overall. There appears to be some subtle scarring, bronchiolectasis. Lungs: No lobar consolidation is appreciated.There is some subsegmental atelectasis versus post inflammatory reticulonodular scarring demonstrated. There is some subtle parenchymal heterogeneity overall and could be seen with processes including post inflammation or small airways disease related sequela. There is some minimal pneumatocele, bleb appearance. There is some ground-glass, nodularity present for example includin x 4 mm adjacent to the right minor fissure image 33. Ground-glass density of around 3 x 6 mm image 37 lateral right lower lobe junction. Some of the scarring and bronchiolectasis is left basilar predominance suggestive of previous inflammation or aspiration related sequela with some centrilobular appearance.Recommend CT Chest at 3-6 months. If stable, then consider CT Chest at 2 years and 4 years. (Reference: Cole) Pleural spaces: No pneumothorax or significant pleural effusion is appreciated. Heart: No significant pericardial fluid collection is appreciated. Coronary arteries: There are coronary arterial calcifications demonstrated. Esophagus: There is some esophageal air overall present. Consider if there is history of reflux or dysmotility. Lymph nodes: There are subcentimeter predominant mediastinal and hilar lymph nodes overall present. Liver: There appears to be some heterogeneous overall appearance of the hepatic parenchyma with subtle cortical lobulation as well as suspected borderline spleen size subtle prominence of the central bile ducts.This can be seen with processes including steatosis as well as chronic hepatic disease changes. Consider hepatobiliary laboratory profile studies. Stomach: There is a small sliding-type hiatal hernia demonstrated with slight gastroesophageal fold thickening. Intestine: There is some moderate stool content overall suggestive of constipation. Intraperitoneal space: The included intraperitoneal space, upper abdominal structures appear unremarkable otherwise overall. Bones/joints: No displaced fracture or dislocation is appreciated.There are some degenerative changes of the shoulders and spine overall present. This appears most pronounced albeit with incomplete inclusion of the upper lumbar with a disc space narrowing, sclerosis, spurring, vacuum phenomenon, as anterolisthesis. There also appears to be some facet arthropathy related changes along with subchondral cystic related changes more so on the right. Consider also if there is history of previous inflammation or intervention at this site. If there is associated pain or radicular-type symptoms with suspected narrowing changes then consider dedicated lumbar MRI with the and without contrast. There is some subtle rib undulation suggestive of previous injury related changes although could also be seen with processes including costochondral averaging inferiorly. Soft tissues: No radiopaque foreign body or subcutaneous emphysema is appreciated. There is some interventional type changes of the upper abdominal wall present. No subcutaneous fluid collections are appreciated. There is some motion artifact present. CT/CT angio chest 24244 IMPRESSION: There is fusiform dilatation of the ascending aorta corresponding to the clinical history provided. There also appears to be subtle prominence of the aortic valvular leaflets as well as some cardiac chamber prominence with the additional findings as above. Overall, consider echocardiography. REFERENCES: [facility] Jimenez, et al. Guidelines for Management of Incidental Pulmonary Nodules Detected on CT Images: From the Fleischner Society 2017. Radiology. 2017;284(1):228-243.
[2025-04-30] MEDS: iohexol 350 mg/mL 500 mL Btl (per mL) IV (13:54)
== END 2025-04-30 13:15 | disposition home or self-care (01) ==
LOC: RAD 13:15
PROVIDERS: PCP Registered Nurse; Visit Provider Internal Medicine
DX: I71.20 Thoracic aortic aneurysm, without rupture, unspecified (principal)
CPT/HCPCS: 71275

== ENCOUNTER → 2025-06-13 07:41 | Outpatient (BNVA) | payer MEDICARE, SELFPAY | PROVIDERS: PCP Registered Nurse; Visit Provider Specialist | DX: M17.11 Unilateral primary osteoarthritis, right knee (principal); E66.01 Morbid (severe) obesity due to excess calories | CPT/HCPCS: 20610; 73560; 73565; 99214; J1100; J2795; J3301; J9999 ==

== ENCOUNTER → 2025-07-09 10:49 | Outpatient (BNVA) | payer MEDICARE, SELFPAY | PROVIDERS: PCP Registered Nurse; Visit Provider Specialist | DX: Z96.641 Presence of right artificial hip joint (principal) | CPT/HCPCS: 73502; 99213 ==

== ENCOUNTER → 2025-09-19 12:40 | Outpatient (BNVA) | payer MEDICARE, SELFPAY | PROVIDERS: PCP Registered Nurse; Visit Provider Nurse Practitioner Family | DX: E78.5 Hyperlipidemia, unspecified (principal); I10 Essential (primary) hypertension; I71.20 Thoracic aortic aneurysm, without rupture, unspecified; Z79.02 Long term (current) use of antithrombotics/antiplatelets; Z86.73 Personal history of transient ischemic attack (TIA), and cerebral infarction without residual deficits; Z87.891 Personal history of nicotine dependence | CPT/HCPCS: 99213 ==